=== PATIENT | female | born 1945 | race Two or more races ===

== ENCOUNTER 2019-07-27 09:11 | Outpatient (CLI) | payer OTHER | END 2019-07-27 09:12 | disposition home or self-care (01) | LOC: RAD 09:11 | DX: M25.512 Pain in left shoulder (principal); S60.222A Contusion of left hand, initial encounter ==

== ENCOUNTER 2019-09-17 08:45 | Outpatient (CLI) | payer OTHER | END 2019-09-17 08:52 | disposition home or self-care (01) | LOC: LAB 08:45 | DX: E55.9 Vitamin D deficiency, unspecified (principal); M85.88 Other specified disorders of bone density and structure, other site; E21.2 Other hyperparathyroidism; E88.89 Other specified metabolic disorders; E56.1 Deficiency of vitamin K; M81.8 Other osteoporosis without current pathological fracture ==

== ENCOUNTER 2019-10-06 09:38 | Outpatient (CLI) | payer OTHER | END 2019-10-06 10:00 | disposition home or self-care (01) | LOC: RAD 09:38 | DX: M25.512 Pain in left shoulder (principal) ==

== ENCOUNTER 2020-06-11 11:20 | Outpatient (CLI) | payer OTHER | END 2020-06-11 11:25 | disposition home or self-care (01) | LOC: RAD 11:20 | PROVIDERS: ATTEND Orthopaedic Surgery | DX: M17.0 Bilateral primary osteoarthritis of knee (principal); M25.561 Pain in right knee; M25.562 Pain in left knee ==

== ENCOUNTER 2020-06-27 11:11 | Outpatient (CLI) | payer OTHER | END 2020-06-27 11:17 | disposition home or self-care (01) | LOC: RAD 11:11 | PROVIDERS: ATTEND Orthopaedic Surgery | DX: M17.0 Bilateral primary osteoarthritis of knee (principal); M25.561 Pain in right knee; M25.562 Pain in left knee ==

== ENCOUNTER 2021-06-26 12:54 | Emergency (ER) | payer OTHER ==
[~2021-06-26] VITALS: Ht 152.4 cm; Wt 72.6 kg
== END 2021-06-26 17:29 | disposition home or self-care (01) ==
LOC: ER 12:54
DX: M25.561 Pain in right knee (principal); M54.59 Other low back pain

== ENCOUNTER 2021-07-15 09:53 | Outpatient (CLI) | payer OTHER | END 2021-07-15 10:04 | disposition home or self-care (01) | LOC: NUCLEAR 09:53 | DX: M79.604 Pain in right leg (principal); M79.605 Pain in left leg ==

== ENCOUNTER 2021-10-16 08:50 | Outpatient (CLI) | payer OTHER ==
[2021-10-16] MEDS ORDERED: ATORVASTATIN CA10 MG PO (11:36)
[2021-10-16] MEDS ORDERED: BISOPROLOL-HCT1 EAC2 PO (11:36)
[2021-10-16] MEDS ORDERED: PROAIR HFA8.5 GM IH (11:37)
[2021-10-16] MEDS ORDERED: GLIMEPIRIDE1 M1 PO (11:37)
[2021-10-16] MEDS ORDERED: LISINOPRIL10 MG PO (11:37)
[2021-10-16] MEDS ORDERED: OXYBUTYNIN CHLOR5 M1 PO (11:37)
== END 2021-10-16 08:51 | disposition home or self-care (01) ==
LOC: LAB 08:50
PROVIDERS: ATTEND Orthopaedic Surgery
DX: D64.9 Anemia, unspecified (principal); E88.9 Metabolic disorder, unspecified; D68.8 Other specified coagulation defects; N39.0 Urinary tract infection, site not specified; B95.62 Methicillin resistant Staphylococcus aureus infection as the cause of diseases classified elsewhere; E11.65 Type 2 diabetes mellitus with hyperglycemia; I10 Essential (primary) hypertension

== ENCOUNTER 2021-10-24 10:57 | Outpatient (CLI) | payer OTHER ==
[~2021-10-24 10:57] MED LIST: ATORVASTATIN CA10 MG PO; BISOPROLOL-HCT1 EAC2 PO; GLIMEPIRIDE1 M1 PO; LISINOPRIL10 MG PO; OXYBUTYNIN CHLOR5 M1 PO; PROAIR HFA8.5 GM IH
== END 2021-10-24 13:42 | disposition home or self-care (01) ==
LOC: LAB 10:57
PROVIDERS: ATTEND Internal Medicine
DX: N39.0 Urinary tract infection, site not specified (principal)